=== PATIENT | male | born 1980 | race Caucasian/White ===

== ENCOUNTER 2018-06-17 11:24 | Emergency (ER) | payer OTHER ==
[~2018-06-17] VITALS: Ht 167.6 cm; Wt 78.7 kg
[2018-06-17] MEDS ORDERED: SODIUM CHLORIDE 0.9% 1,000 ML IV ONE (11:50)
[2018-06-17] MEDS ORDERED: POLYVINYL ALCOHOL OPHTH DROPS 15ML LEFTEYE STA (11:54)
[2018-06-17] MEDS ORDERED: IBUPROFEN 600MG TABLET PO ONE (12:00)
[2018-06-17] MEDS ORDERED: ACYCLOVIR 400 MG TABLET PO ONE (12:00)
[2018-06-17] MEDS ORDERED: PREDNISONE 20MG TABLET PO ONE (12:00)
[2018-06-17 12:56] LABS: BASOPHILS % 0.3 % (0.0-2.0); EOSINOPHILS % 0.9 % (0.0-5.0); HEMATOCRIT. 45.5 % (42.0-52.0); HEMOGLOBIN. 15.2 g/dL (14.0-18.0); MEAN CORPUSCULAR HEMOGLOBIN 28.2 pg (28.0-32.0); MEAN CORPUSCULAR VOLUME 84.5 fL (80.0-94.0); MEAN PLATELET VOLUME 8.6 fl (7.4-10.4); MONOCYTES % 8.1 % (2.0-8.0); NEUTROPHILS % 68.7 % (40.0-76.0); PLATELET 203 x1000/uL (130-400); RED BLOOD CELL COUNT 5.39 mill/uL (4.7-6.1); RED CELL DISTRIBUTION WIDTH 12.8 % (11.6-14.6)
[2018-06-17 13:03] LABS: CHLORIDE 102 mEq/L (98-107)
[2018-06-17 14:09] VITALS: BP 135/86
== END 2018-06-17 14:11 | disposition home or self-care (01) ==
LOC: ER 11:24
DX: G51.0 Bell's palsy (principal); I10 Essential (primary) hypertension; E11.9 Type 2 diabetes mellitus without complications
CPT/HCPCS: 36415; 70450; 80053; 85025; 99284; J7030; J7512

== ENCOUNTER 2018-10-05 20:12 | Emergency (ER) | payer OTHER ==
[~2018-10-05] VITALS: Ht 167.6 cm; Wt 77.0 kg
[2018-10-05] MEDS ORDERED: HYDROCODONE/ACETAMINOPHEN 5/325MG TABLET PO ONE (22:45)
[2018-10-05] MEDS ORDERED: TETANUS, DIPHTHERIA, PERTUSSIS VAC/PF 0.5ML (>7YR OLD) IM ONE (23:00)
[2018-10-06 00:34] VITALS: BP 138/77
== END 2018-10-06 00:34 | disposition home or self-care (01) ==
LOC: ER 20:12
DX: M25.551 Pain in right hip (principal); G51.0 Bell's palsy; E11.9 Type 2 diabetes mellitus without complications; I10 Essential (primary) hypertension
CPT/HCPCS: 73522; 73610; 73630; 90471; 90715; 99283; Z7610